=== PATIENT | male | born 1990 | race Caucasian/White ===

== ENCOUNTER → 2023-06-12 12:03 | Outpatient (REF) | payer BC, SELFPAY | LOC: PAVMRI 12:03 | PROVIDERS: ATTENDING PHYSICIAN Internal Medicine Cardiovascular Disease; FAMILY PHYSICIAN Internal Medicine | DX: Q23.1 Congenital insufficiency of aortic valve (principal) | CPT/HCPCS: 71555 ==

== ENCOUNTER 2023-06-28 11:56 | Emergency (ER) | payer BC, SELFPAY ==
[2023-06-28 12:07] VITALS: BP 125/88
[2023-06-28 12:21] VITALS: BP 119/82
[2023-06-28 12:22] VITALS: BMI 26.9
[2023-06-28 12:37] LABS: % Basophils 0.5 % (0-2); % Eosinophils 1.8 % (0-6); % Immature Granulocytes 0.6 % (0-0.5); % Lymphocytes 26.4 % (20.5-51.1); % Neutrophils 59.7 % (42.2-75.2); Absolute Eosinophils 0.1 10^3/uL (0-0.7); Absolute Lymphocytes 1.7 10^3/uL (1.2-3.4); Absolute Monocytes 0.7 10^3/uL (0.1-0.6); Absolute Neutrophils 3.7 10^3/uL (1.4-6.5); Hematocrit 45.7 % (39.0-52.0); Hemoglobin 15.8 g/dL (13.0-18.0); Mean Corp Hgb Conc. 34.6 g/dL (33.0-37.0); Mean Corpuscular Hgb 31.2 pg (27.0-31.0); Mean Corpuscular Volume 90.1 fL (80.0-94.0); Mean Platelet Volume 9.5 fL (7.4-10.4); Nucleated Red Blood Cells % 0 % (-); Platelet Count 276 10^3/uL (130-400); Red Blood Cell Count 5.07 10^6/uL (4.70-6.10); Red Cell Dist. Width 11.9 % (11.5-14.5); White Blood Cell Count 6.3 10^3/uL (4.8-10.8)
[2023-06-28 12:53] LABS: ALT (SGPT) 62 U/L (0-50); AST (SGOT) 34 U/L (17-59); Albumin 4.6 g/dl (3.5-5.0); Alkaline Phosphatase 55 U/L (38-126); Blood Urea Nitrogen 18 mg/dl (9-20); Calcium 9.8 mg/dl (8.4-10.2); Carbon Dioxide 30 mmol/L (22-30); Chloride 100 mmol/L (98-107); Estimated Creatinine Clearance > 125 ml/min; Glucose 94 mg/dl (70-99); Potassium 4.4 mmol/L (3.5-5.1); Sodium 139 mmol/L (135-145); Total Bilirubin 0.9 mg/dl (0.2-1.3); Total Protein 7.4 g/dl (6.3-8.2); eGFR > 60.00
[2023-06-28 13:02] LABS: Troponin I < 0.012 ng/ml
[2023-06-28 13:25] LABS: D-Dimer < 0.27 ug/mlFEU (0.00-0.50)
--- NOTE | 2023-06-28 13:36 | ED.GENMED ---
History of Present Illness
General
Chief Complaint: Chest Pain
Source: patient
Exam Limitations: none
Time Seen by Provider: 06/28/23 12:26
Travel History
Have you had any contact with someone who has COVID-19?: No
Do you have any symptoms of coronavirus? Fever > 100 degrees, chills, cough, shortness of breath, sore throat, loss of taste or smell, muscle aches, or headache?: No
History of Present Illness
History of Present Illness:
33-year-old male who does have a history of a bicuspid aortic valve who presents for shortness of breath and chest discomfort states that for about 2 weeks. Patient admits that he has had symptoms longer than that that include weakness and fatigue
and feels like he cannot tolerate running like he thinks he should. He has seen cardiology and had an echocardiogram and a stress test that was normal. He states he has had his valve fully evaluated. The patient denies any recent travel. No leg
swelling. No illness. He had COVID back in April. He originally presented to urgent care
Past History
Past History
ED Past Medical History: Valvular disease (Bicuspid aortic) and Hypothyroidism
ED Past Surgical History: None
Social History
Tobacco: Smoker
Drug: None
Family History
Family History: Other (Mother with hypothyroidism)
Phy Exam
Physical Exam
Physical Exam:
CONSTITUTIONAL Patient alert and oriented to person, place and time. Well-appearing. Vital signs reviewed.
HEAD atraumatic, normocephalic.
EYES eyelids normal to inspection, Pupils equally round and reactive to light, Extraocular muscles intact, Conjunctiva normal, Sclera normal.
NECK normal range of motion, Trachea midline, no jugular venous distention.
RESPIRATORY CHEST No respiratory distress noted, Chest expansion equal, Bilateral breath sounds clear.
CARDIOVASCULAR regular rate and rhythm, Heart sounds normal.
ABDOMEN abdomen nontender, Bowel sounds normal. No distention.
BACK normal inspection, no obvious deformities
UPPER EXTREMITY range of motion normal, Motor strength normal, no cyanosis, no edema.
LOWER EXTREMITY range of motion normal, Motor strength normal, no cyanosis, no edema.
NEURO Speech normal, No focal motor deficits, [place] coma scale 15, Memory normal, Cranial Nerves intact to screening exam.
SKIN skin warm, dry, and normal in color.
Scores
Heart Score for Chest Pain Patients
STEMI patient?: No
History: Slightly or Non-Suspicious
ECG: Normal
Age: </= 45 years
Risk Factors: No Risk Factors
Troponin: </= Normal Limit
Heart Score for Chest Pain Patients: 0
Heart Score Risk: 2.5% MACE over next 6 weeks
Course
Orders/Labs/Results
Orders:
Orders
06/28/23 12:10
Electrocardiogram (*1) Urgent
Reason for Study: Chest Pain
EKG- Treatment ONCE
06/28/23 12:26
Complete Blood Count/With Diff Urgent
Comprehensive Metabolic Panel Urgent
Free T4 Urgent
TSH Reflex To Free T4 Urgent
Troponin I Urgent
06/28/23 12:56
DDimer [D-Dimer] Stat
06/28/23 13:36
CR Chest - 2 Views Urgent
Comment:
Reason For Exam: cp
Abnormal Lab Results
06/28/23
12:26
MCH 31.2 H pg
(27.0-31.0)
Absolute Monos (auto) 0.7 H 10^3/uL
(0.1-0.6)
Immature Gran % 0.6 H %
(0-0.5)
Monocytes % 11.0 H %
(1.7-9.3)
ALT 62 H U/L
(0-50)
TSH (Reflex) 7.10 H uIU/ml
(0.47-4.68)
06/28/23 12:26
06/28/23 12:26
Vital Signs
Initial and Last Documented VS:
Initial Vital Signs
Temp Pulse Resp BP Pulse Ox
98.0 F 68 16 125/88 98
06/28/23 12:07 06/28/23 12:07 06/28/23 12:07 06/28/23 12:07 06/28/23 12:07
Last Documented Vital Signs
Temp Pulse Resp BP Pulse Ox
97.6 F 86 16 122/81 99
06/28/23 14:19 06/28/23 14:19 06/28/23 14:19 06/28/23 14:19 06/28/23 14:19
MDM/Problems Addressed
MDM/Problems Addressed:
Chest pain, dyspnea
*Radiology
Radiology exam reviewed: all reviewed NAD by ED Provider
*Pulse Oximetry
Patient hypoxic: no
*EKG
Interpreted by ED Provider?: Yes
Interpretation: normal
Rate: normal
Rhythm: sinus
Park: normal axis
QRS Pattern: normal QRS
Ischemia: no ischemia
*Technical Training Manager Interpretation
Rate: normal
Interpretation: normal
Rhythm: sinus
*Critical Care Note
Total Time (30-74mins, 75-104mins- exclusive of procedures): Not Applicable
Data Reviewed
Source: patient
Further Testing Considered But Not Given:
consider CT of the chest but D-dimer negative
Patient Management
Escalation/DeEscalation of care consider admission/obs:
Patient appears well. D-dimer negative, troponin negative, EKG normal. Okay for discharge
ED Attending Note
-
Portions of this chart may have been created with voice recognition software.� Occasional wrong word or��sound alike� substitutions may have occurred due to the inherent limitations of voice recognition software.
Discharge Plan
Departure
Patient Disposition: Home (Routine Discharge)
Date of Disposition: 06/28/23
Time of Disposition: 14:06
Patient with high blood pressure during this ER visit?: No
Discharge Problem:
Dyspnea
Instructions: Chest Pain PCP Follow Up
Prescriptions:
No Action
No Current Medications
0
Referrals:
Devika Key MD [Family Provider] -
Activity Restrictions/Additional Instructions:
Please see your doctor in the next week for follow-up and reevaluation. Return immediately for worsening symptoms, fever, passing out episode or any other concerns.
Interventions
Interventions:
*Risk Screen - Suicide Last Done: 06/28/23 12:22
*General Assessment Last Done: 06/28/23 12:22
*Neglect/Abuse Screening Last Done: 06/28/23 12:22
ED- Fall Risk Assessment Last Done: 06/28/23 12:22
*ED COVID-19 Vaccine History Last Done: 06/28/23 12:07
*Nursing Disposition Last Done: 06/28/23 14:19
ED- Cardiac Assessment Last Done: 06/28/23 12:22
Discharge Date and Time
Discharge Date/Time: 06/28/23 14:20
[2023-06-28 14:04] LABS: Free T4 1.03 ng/dl (0.78-2.19)
[2023-06-28 14:19] VITALS: BP 122/81
== END 2023-06-28 14:20 | disposition home or self-care (01) ==
LOC: EMR 11:56
PROVIDERS: EMERGENCY PHYSICIAN Emergency Medicine; FAMILY PHYSICIAN Internal Medicine
DX: R06.00 Dyspnea, unspecified (principal); Q23.1 Congenital insufficiency of aortic valve; E03.9 Hypothyroidism, unspecified; F17.200 Nicotine dependence, unspecified, uncomplicated; Z83.49 Family history of other endocrine, nutritional and metabolic diseases
CPT/HCPCS: 99283; 71046; 80053; 84439; 84443; 84484; 85025; 85379; 93005